=== PATIENT | female | born 1945 | race African-American/Black ===

== ENCOUNTER 2022-11-19 13:52 | Emergency (ER) | payer MEDICARE ==
[2022-11-19 14:55] LABS: #Basophils 0.1 10x3/uL (0.0-0.2); #Eosinphils 0.1 10x3/uL (0.0-0.5); #Neutrophils 3.6 10x3/uL (1.5-8.4); %Basophils 0.9 % (0.0-2.0); %Eosinophils 0.8 % (0.0-6.0); %Monocytes 12.7 % (0.0-10.0); %Neutrophils 46.8 % (40.0-75.0); Mean Corpuscular HGB CONC 32.4 g/dL (32.0-36.0); Mean Corpuscular Hemoglobin 29.7 pg (27.0-33.0); Mean Corpuscular Volume 91.7 fl (81.6-98.3); Mean Platelet Volume 9.5 fl (7.4-10.4); Platelet Count 147 10x3/uL (150-450); RBC Distribution Width 16.2 % (11.5-14.5); Red Blood Cell (RBC) Count 3.03 10x6/uL (3.90-5.03); White Blood Cell (WBC) Count 7.8 10x3/uL (3.5-10.5)
[2022-11-19] MEDS ORDERED: Azithromycin 500 MG VIAL ONE (15:00)
[2022-11-19] MEDS ORDERED: cefTRIAXone (ROCEPHIN) 1 GM VIAL ONE (15:00)
[2022-11-19 15:08] LABS: INR-International Normal Ratio 1.3; PTT 23.5 sec (22.0-33.0); Prothrombin Time 13.9 sec (9.5-12.1)
[2022-11-19 15:11] LABS: ALT (SGPT) 8 U/L (8-55); AST (SGOT) 9 U/L (5-34); Albumin 2.4 g/dL (3.4-4.8); Alkaline Phosphatase 70 U/L (40-110); Anion Gap 10 mmol/L (10-20); BUN (Urea Nitrogen) 22 mg/dL (9.8-20.1); Bilirubin, Total 0.8 mg/dL (0.2-1.2); Calc. Creatinine Clearance 0 mL/min (70-130); Calcium 9.1 mg/dL (7.8-10.44); Carbon Dioxide 23 mmol/L (23-31); Chloride 106 mmol/L (98-107); Estimated GFR 32; Glucose 90 mg/dL (83-110); Potassium 3.8 mmol/L (3.5-5.1); Sodium 135 mmol/L (136-145)
[2022-11-19 15:34] LABS: CKMB 0.3 ng/mL (0-6.6)
[2022-11-19 16:07] LABS: Protein, Total 13.8 g/dL (5.8-8.1)
[2022-11-19 16:08] LABS: Globulin 11.4 g/dL (2.4-3.5)
[2022-11-19] MEDS ORDERED: Lidocaine 1% PF 5 ML VIAL ONE (16:11)
== END 2022-11-19 16:50 | disposition home or self-care (01) ==
LOC: CSHERS 13:52
DX: R05.9 Cough, unspecified (principal); N17.9 Acute kidney failure, unspecified; K21.9 Gastro-esophageal reflux disease without esophagitis; I10 Essential (primary) hypertension
CPT/HCPCS: 36415; 71045; 80053; 82553; 83605; 84484; 85025; 85610; 85730; 87040; 96372; J0456; J0696

== ENCOUNTER 2022-12-07 18:45 | Observation (INO) | payer MEDICARE ==
[2022-12-07 20:25] LABS: #Basophils 0.1 10x3/uL (0.0-0.2); #Eosinphils 0.1 10x3/uL (0.0-0.5); #Neutrophils 4.9 10x3/uL (1.5-8.4); %Basophils 0.6 % (0.0-2.0); %Eosinophils 0.7 % (0.0-6.0); %Lymphocytes 31.1 % (18.0-47.0); %Monocytes 10.8 % (0.0-10.0); %Neutrophils 54.1 % (40.0-75.0); Hemoglobin 7.4 g/dL (12.0-15.5); Mean Corpuscular HGB CONC 33.5 g/dL (32.0-36.0); Mean Corpuscular Hemoglobin 30.1 pg (27.0-33.0); Mean Corpuscular Volume 89.8 fl (81.6-98.3); Mean Platelet Volume 9.3 fl (7.4-10.4); Platelet Count 130 10x3/uL (150-450); RBC Distribution Width 17.2 % (11.5-14.5); Red Blood Cell (RBC) Count 2.46 10x6/uL (3.90-5.03)
[2022-12-07 20:38] LABS: ALT (SGPT) 12 U/L (8-55); AST (SGOT) 13 U/L (5-34); Albumin 2.3 g/dL (3.4-4.8); Alkaline Phosphatase 65 U/L (40-110); Anion Gap 9 mmol/L (10-20); BUN (Urea Nitrogen) 31 mg/dL (9.8-20.1); Bilirubin, Total 0.5 mg/dL (0.2-1.2); Calc. Creatinine Clearance 0 mL/min (70-130); Carbon Dioxide 27 mmol/L (23-31); Chloride 102 mmol/L (98-107); Estimated GFR 32; Glucose 94 mg/dL (83-110); Sodium 134 mmol/L (136-145)
[2022-12-07 20:42] LABS: Protein, Total Greater than 12.0 g/dL (5.8-8.1)
[2022-12-07 20:57] LABS: CKMB 0.2 ng/mL (0-6.6)
[2022-12-07 21:25] LABS: Bilirubin Neg (Negative); Blood, Urine 10 (Negative); Clarity Slightly Cloudy (Clear); Glucose, Urine (Dipstick) Normal (Negative); Ketone, Urine Negative (Negative); Leukocyte 25 (Negative); Nitrite Positive (Negative); Protein, Urine (Dipstick) 30 mg/dl (Neg-Trace); Specific Gravity, Urine 1.015 (1.005-1.030); Urobilinogen Normal mg/dL (Less than 2); pH, Urine 6.5 (5.0-9.0)
[2022-12-07 21:36] LABS: CAUTI Indications for Culture Pelvic or flank pain; RBC/HPF 0-3 HPF (0-3); WBC/HPF 0-3 HPF (0-3)
[2022-12-07 21:37] LABS: Bacteria/HPF 2+ HPF (None Seen); Calcium Oxalate Crystals 1+ HPF (None Seen)
[2022-12-07 21:38] LABS: Urine Culture Reflex No No
[2022-12-07] MEDS ORDERED: cefTRIAXone (ROCEPHIN) 2 GM VIAL ONE (22:24)
[2022-12-07] MEDS ORDERED: Acetaminophen 325 MG TAB PO PRN (23:09)
[2022-12-07] MEDS ORDERED: Ondansetron PF 4 MG/2 ML Vial IVP PRN (23:09)
[2022-12-07] MEDS ORDERED: Acetaminophen 650 MG Suppository PR PRN (23:09)
[2022-12-07] MEDS ORDERED: Ondansetron ODT 4 MG TAB PO PRN (23:09)
[2022-12-08 00:14] VITALS: BMI 22.1
[2022-12-08] MEDS: Sodium Chloride 0.9% 1,000 ML IV SCH ×2 (00:35→08:06)
[2022-12-08 03:43] LABS: #Basophils 0.1 10x3/uL (0.0-0.2); #Neutrophils 4.9 10x3/uL (1.5-8.4); %Basophils 0.6 % (0.0-2.0); %Eosinophils 0.4 % (0.0-6.0); %Monocytes 11.4 % (0.0-10.0); %Neutrophils 58.8 % (40.0-75.0); Mean Corpuscular HGB CONC 33.5 g/dL (32.0-36.0); Mean Corpuscular Hemoglobin 30.2 pg (27.0-33.0); Mean Corpuscular Volume 90.2 fl (81.6-98.3); Mean Platelet Volume 9.6 fl (7.4-10.4); Platelet Count 125 10x3/uL (150-450); RBC Distribution Width 17.5 % (11.5-14.5); Red Blood Cell (RBC) Count 2.65 10x6/uL (3.90-5.03); White Blood Cell (WBC) Count 8.4 10x3/uL (3.5-10.5)
[2022-12-08 03:57] LABS: Anion Gap 10 mmol/L (10-20); BUN (Urea Nitrogen) 24 mg/dL (9.8-20.1); Calc. Creatinine Clearance 28 mL/min (70-130); Calcium 9.3 mg/dL (7.8-10.44); Carbon Dioxide 22 mmol/L (23-31); Chloride 106 mmol/L (98-107); Estimated GFR 40; Glucose 85 mg/dL (83-110); Potassium 3.4 mmol/L (3.5-5.1); Sodium 135 mmol/L (136-145)
[2022-12-08] MEDS ORDERED: Electrolyte Replacement Protocol FS PRN (06:45)
[2022-12-08 06:48] LABS: Magnesium 1.7 mg/dL (1.6-2.6)
[2022-12-08] MEDS: Potassium Chloride 20 MEQ in Premix Bag 1 BAG IVPB SCH ×2 (08:06→10:15)
[2022-12-08] MEDS ORDERED: Magnesium 2 GM/50 ML(in water) 2 GM in Premix Bag 1 BAG IVPB SCH (09:00)
[2022-12-08] MEDS ORDERED: Polyethylene Glycol 3350 17 GM Packet PO SCH (11:00)
[2022-12-08] MEDS: Diclofenac 1% 100 GM GEL TP SCH ×3 (13:59→20:41)
[2022-12-08 17:22] LABS: Potassium 3.8 mmol/L (3.5-5.1)
[2022-12-08] MEDS ORDERED: Escitalopram Oxalate 10 mg Tablet PO SCH (21:00)
[2022-12-08] MEDS ORDERED: cefTRIAXone\\ROCEPHIN 1 GM in Sodium Chloride 0.9% 100 ML IVPB SCH (21:00)
[2022-12-08] MEDS ORDERED: Propylthiouracil 50 MG TAB PO SCH ×2 (21:00)
[2022-12-08] MEDS ORDERED: traZODone HCl 50 MG TAB PO SCH (23:15)
[2022-12-09 05:14] LABS: Magnesium 1.8 mg/dL (1.6-2.6); Phosphorus 2.5 mg/dL (2.3-4.7)
[2022-12-09] MEDS ORDERED: Magnesium 2 GM/50 ML(in water) 2 GM in Premix Bag 1 BAG IVPB SCH (09:00)
[2022-12-09] MEDS ORDERED: Polyethylene Glycol 3350 17 GM Packet PO SCH (09:00)
[2022-12-09] MEDS ORDERED: Cefdinir 300 MG CAP PO SCH (09:00)
[2022-12-09] MEDS: Diclofenac 1% 100 GM GEL TP SCH (10:06)
[2022-12-09] MEDS ORDERED: Propylthiouracil 50 MG TAB PO SCH (12:00)
[2022-12-09 12:28] VITALS: BP 132/82; TEMP 98.4
[2022-12-10] MEDS ORDERED: Propylthiouracil 50 MG TAB PO SCH (09:00)
[2022-12-11] MEDS ORDERED: Propylthiouracil 50 MG TAB PO SCH ×2 (09:00)
== END 2022-12-09 12:25 | disposition home or self-care (01) ==
LOC: CSHERS 18:45 → INTOOBSV 12-08 00:02 → CSHICU 12-08 00:02 → UNDOADMOB 12-08 00:02 → CSHICU 12-08 05:32
PROVIDERS: ADMIT Student in an Organized Health Care Education/Training Program; ATTEND Family Medicine
DX: R41.82 Altered mental status, unspecified (principal); F03.90 Unspecified dementia, unspecified severity, without behavioral disturbance, psychotic disturbance, mood disturbance, and anxiety; K21.9 Gastro-esophageal reflux disease without esophagitis; I10 Essential (primary) hypertension; C90.00 Multiple myeloma not having achieved remission; N39.0 Urinary tract infection, site not specified; N17.9 Acute kidney failure, unspecified; N12 Tubulo-interstitial nephritis, not specified as acute or chronic; D64.9 Anemia, unspecified; R22.42 Localized swelling, mass and lump, left lower limb; G93.40 Encephalopathy, unspecified; Z79.899 Other long term (current) drug therapy
CPT/HCPCS: 73560; 80048; 81001; 82553; 83605; 83735 ×2; 84100; 84132; 84484; 86850; 86900; 86901; 87086; 96372; 96374; 96375 ×2; 96376 ×2; G0378 ×2; 36415; 80053; 84443; 85025; J0696; J1650; J2405; J3475; J3480; J3490; J7050

== ENCOUNTER 2022-12-10 22:16 | Inpatient (IN) | payer MEDICARE ==
[2022-12-10 23:24] LABS: #Basophils 0.1 10x3/uL (0.0-0.2); #Monocytes 1.3 10x3/uL (0.0-1.1); #Neutrophils 5.2 10x3/uL (1.5-8.4); %Basophils 0.6 % (0.0-2.0); %Eosinophils 0.4 % (0.0-6.0); %Lymphocytes 24.7 % (18.0-47.0); %Monocytes 14.5 % (0.0-10.0); %Neutrophils 57.4 % (40.0-75.0); Hemoglobin 7.2 g/dL (12.0-15.5); Mean Corpuscular HGB CONC 34.1 g/dL (32.0-36.0); Mean Corpuscular Volume 87.9 fl (81.6-98.3); Mean Platelet Volume 9.1 fl (7.4-10.4); Platelet Count 130 10x3/uL (150-450); RBC Distribution Width 18.1 % (11.5-14.5); White Blood Cell (WBC) Count 9.1 10x3/uL (3.5-10.5)
[2022-12-10 23:39] LABS: ALT (SGPT) Less than 7 U/L (8-55); AST (SGOT) 14 U/L (5-34); Albumin 2.2 g/dL (3.4-4.8); Alkaline Phosphatase 63 U/L (40-110); Anion Gap 13 mmol/L (10-20); BUN (Urea Nitrogen) 28 mg/dL (9.8-20.1); Bilirubin, Total 0.6 mg/dL (0.2-1.2); Calc. Creatinine Clearance 0 mL/min (70-130); Calcium 8.4 mg/dL (7.8-10.44); Carbon Dioxide 20 mmol/L (23-31); Chloride 100 mmol/L (98-107); Estimated GFR 32; Glucose 107 mg/dL (83-110); Lipase 17 U/L (8-78); Potassium 3.7 mmol/L (3.5-5.1); Sodium 129 mmol/L (136-145)
[2022-12-10 23:54] LABS: Protein, Total 11.7 g/dL (5.8-8.1)
[2022-12-11] MEDS ORDERED: Ondansetron PF 4 MG/2 ML Vial ONE (00:03)
[2022-12-11 01:21] LABS: Bilirubin Neg (Negative); Blood, Urine 50 (Negative); Clarity Cloudy (Clear); Glucose, Urine (Dipstick) Normal (Negative); Ketone, Urine Negative (Negative); Leukocyte Negative (Negative); Nitrite Negative (Negative); Protein, Urine (Dipstick) 30 mg/dl (Neg-Trace); Urobilinogen Normal mg/dL (Less than 2)
[2022-12-11 01:42] LABS: Bacteria/HPF 1+ HPF (None Seen); CAUTI Indications for Culture Alt mental st,lethar; Mucous/LPF 1+ LPF (<2+); WBC/HPF 0-3 HPF (0-3)
[2022-12-11 01:43] LABS: Urine Culture Reflex No No
[2022-12-11] MEDS ORDERED: Acetaminophen 325 MG TAB PO PRN (03:06)
[2022-12-11] MEDS ORDERED: Bisacodyl 5 MG TAB PO PRN (03:06)
[2022-12-11] MEDS ORDERED: Calcium Carbonate 500 MG ChewTAB PO PRN (03:06)
[2022-12-11] MEDS ORDERED: Senokot S 8.6-50 MG TAB PO PRN (03:06)
[2022-12-11] MEDS ORDERED: Ondansetron PF 4 MG/2 ML Vial IVP PRN (03:06)
[2022-12-11] MEDS ORDERED: Bisacodyl 10 MG SUPP PR PRN (03:06)
[2022-12-11 03:50] LABS: Anion Gap 10 mmol/L (10-20); BUN (Urea Nitrogen) 27 mg/dL (9.8-20.1); Calc. Creatinine Clearance 34 mL/min (70-130); Calcium 8.2 mg/dL (7.8-10.44); Carbon Dioxide 22 mmol/L (23-31); Chloride 102 mmol/L (98-107); Estimated GFR 36; Glucose 125 mg/dL (83-110); Mean Corpuscular HGB CONC 33.3 g/dL (32.0-36.0); Mean Corpuscular Volume 90.1 fl (81.6-98.3); Mean Platelet Volume 9.3 fl (7.4-10.4); Platelet Count 127 10x3/uL (150-450); Potassium 3.6 mmol/L (3.5-5.1); RBC Distribution Width 18.3 % (11.5-14.5); Red Blood Cell (RBC) Count 2.33 10x6/uL (3.90-5.03); Sodium 130 mmol/L (136-145); White Blood Cell (WBC) Count 10.2 10x3/uL (3.5-10.5)
[2022-12-11 03:53] LABS: MDiff Complete? YES
[2022-12-11 04:17] LABS: Band 4 % (5-11); Lymphocytes 24 % (21-51); Monocytes 19 % (0-10); Neutrophil 53 % (42-75); Nucleated RBC (Manual Ct) 1 % (0)
[2022-12-11 04:19] LABS: Anisocytosis SLIGHT = 6-15 cells (100X) (0-5/hpf); Hypochromia MODERATE=16-30 cells (100X) (0-5/hpf); Macrocytosis SLIGHT = 6-15 cells (100X) (0-5/hpf); Microcytosis SLIGHT = 6-15 cells (100X) (0-5/hpf); Platelet Adequacy Comment Appears Decreased
[2022-12-11 04:22] LABS: Free T4 (Free Thyroxine) 1.23 ng/dL (0.70-1.48); Thyroid Stimulating Hormone 1.7472 uIU/mL (0.35-4.94)
[2022-12-11 08:06] VITALS: BMI 19.4
[2022-12-11] MEDS: Cefdinir 300 MG CAP PO SCH ×2 (08:20→20:11)
[2022-12-11] MEDS: Senokot S 8.6-50 MG TAB PO SCH ×2 (08:21→20:10)
[2022-12-11] MEDS: Propylthiouracil 50 MG TAB PO SCH ×2 (09:49→20:11)
[2022-12-11] MEDS ORDERED: Sodium Chloride 0.9% 1,000 ML IV SCH (12:15)
[2022-12-11] MEDS: Sodium Chloride 0.9% 1,000 ML IV SCH (12:42)
[2022-12-11] MEDS: Escitalopram Oxalate 10 mg Tablet PO SCH (20:11)
[2022-12-12 04:08] LABS: #Eosinphils 0.1 10x3/uL (0.0-0.5); #Monocytes 1.5 10x3/uL (0.0-1.1); #Neutrophils 5.4 10x3/uL (1.5-8.4); %Basophils 0.4 % (0.0-2.0); %Eosinophils 0.6 % (0.0-6.0); %Lymphocytes 26.9 % (18.0-47.0); %Monocytes 14.9 % (0.0-10.0); Hemoglobin 8.7 g/dL (12.0-15.5); Mean Corpuscular Hemoglobin 29.3 pg (27.0-33.0); Mean Corpuscular Volume 86.2 fl (81.6-98.3); Mean Platelet Volume 9.4 fl (7.4-10.4); Platelet Count 125 10x3/uL (150-450); RBC Distribution Width 18.2 % (11.5-14.5); Red Blood Cell (RBC) Count 2.97 10x6/uL (3.90-5.03); White Blood Cell (WBC) Count 9.8 10x3/uL (3.5-10.5)
[2022-12-12 04:21] LABS: Anion Gap 10 mmol/L (10-20); BUN (Urea Nitrogen) 19 mg/dL (9.8-20.1); Calc. Creatinine Clearance 33 mL/min (70-130); Calcium 8.2 mg/dL (7.8-10.44); Carbon Dioxide 21 mmol/L (23-31); Chloride 104 mmol/L (98-107); Estimated GFR 50; Glucose 94 mg/dL (83-110); Magnesium 1.8 mg/dL (1.6-2.6); Potassium 3.8 mmol/L (3.5-5.1); Sodium 131 mmol/L (136-145)
[2022-12-12] MEDS: Senokot S 8.6-50 MG TAB PO SCH ×2 (08:03→20:24)
[2022-12-12] MEDS: Cefdinir 300 MG CAP PO SCH ×2 (08:03→20:24)
[2022-12-12] MEDS: Propylthiouracil 50 MG TAB PO SCH ×2 (08:03→20:24)
[2022-12-12] MEDS: Sodium Chloride 0.9% 1,000 ML IV SCH (08:04)
[2022-12-12] MEDS ORDERED: Polyethylene Glycol 3350 17 GM Packet PO SCH (09:00)
[2022-12-12] MEDS: Escitalopram Oxalate 10 mg Tablet PO SCH (20:24)
[2022-12-13 03:26] LABS: #Basophils 0.1 10x3/uL (0.0-0.2); #Eosinphils 0.1 10x3/uL (0.0-0.5); #Monocytes 1.3 10x3/uL (0.0-1.1); #Neutrophils 5.3 10x3/uL (1.5-8.4); %Basophils 0.7 % (0.0-2.0); %Eosinophils 0.5 % (0.0-6.0); %Lymphocytes 27.9 % (18.0-47.0); %Monocytes 13.4 % (0.0-10.0); %Neutrophils 55.7 % (40.0-75.0); Hemoglobin 8.8 g/dL (12.0-15.5); Mean Corpuscular HGB CONC 34.9 g/dL (32.0-36.0); Mean Corpuscular Hemoglobin 29.7 pg (27.0-33.0); Mean Corpuscular Volume 85.1 fl (81.6-98.3); Mean Platelet Volume 9.5 fl (7.4-10.4); Platelet Count 135 10x3/uL (150-450); RBC Distribution Width 18.2 % (11.5-14.5); Red Blood Cell (RBC) Count 2.96 10x6/uL (3.90-5.03); White Blood Cell (WBC) Count 9.5 10x3/uL (3.5-10.5)
[2022-12-13 03:37] LABS: Anion Gap 10 mmol/L (10-20); BUN (Urea Nitrogen) 16 mg/dL (9.8-20.1); Calc. Creatinine Clearance 37 mL/min (70-130); Calcium 7.8 mg/dL (7.8-10.44); Carbon Dioxide 19 mmol/L (23-31); Chloride 104 mmol/L (98-107); Estimated GFR 58; Glucose 94 mg/dL (83-110); Potassium 3.4 mmol/L (3.5-5.1); Sodium 130 mmol/L (136-145)
[2022-12-13] MEDS: Sodium Chloride 0.9% 1,000 ML IV SCH (04:15)
[2022-12-13 04:20] VITALS: BP 142/80
[2022-12-13 07:55] VITALS: TEMP 98.7
[2022-12-13] MEDS: Senokot S 8.6-50 MG TAB PO SCH (10:23)
[2022-12-13] MEDS: Cefdinir 300 MG CAP PO SCH (10:24)
[2022-12-13] MEDS: Propylthiouracil 50 MG TAB PO SCH (10:24)
== END 2022-12-13 11:30 | disposition home or self-care (01) | DRG 389 ==
LOC: CSHERS 22:16 → CSHERHOLD 12-11 03:06 → CSHIMCU 12-11 08:09 → OBSVTOIN 12-12 14:19 → CSHTELE 12-13 06:57
PROVIDERS: ADMIT Student in an Organized Health Care Education/Training Program; ATTEND Internal Medicine
PROC: 30233N1 Transfusion of Nonautologous Red Blood Cells into Peripheral Vein, Percutaneous Approach (ICD-10-PCS; principal; 2022-12-11)
DX: K56.41 Fecal impaction (principal); C79.51 Secondary malignant neoplasm of bone; N39.0 Urinary tract infection, site not specified; C90.00 Multiple myeloma not having achieved remission; N17.9 Acute kidney failure, unspecified; J90 Pleural effusion, not elsewhere classified; G93.40 Encephalopathy, unspecified; Z51.5 Encounter for palliative care; Z66 Do not resuscitate; K59.00 Constipation, unspecified; I12.9 Hypertensive chronic kidney disease with stage 1 through stage 4 chronic kidney disease, or unspecified chronic kidney disease; D63.1 Anemia in chronic kidney disease; N18.30 Chronic kidney disease, stage 3 unspecified; K21.9 Gastro-esophageal reflux disease without esophagitis; E03.9 Hypothyroidism, unspecified; G30.9 Alzheimer's disease, unspecified; F02.80 Dementia in other diseases classified elsewhere, unspecified severity, without behavioral disturbance, psychotic disturbance, mood disturbance, and anxiety; Z79.899 Other long term (current) drug therapy
CPT/HCPCS: 36415; 36430; 74176; 80048; 80053; 81001; 83605; 83690; 83735; 84439; 84443; 85025; 86850; 86900; 86901; 93306; 94760; 94762; G0378; J2405; J7050; P9016